=== PATIENT | female | born 1965 | race Caucasian/White ===

== ENCOUNTER 2021-11-20 16:45 | Emergency (ER) | payer SELFPAY ==
[2021-11-20 18:14] LABS: Hematocrit 37.1 % (36.0-45.0); Lymphocytes % 8.3 % (15.3-44.8); MPV 9.3 fL (7.6-11.3); RBC Red Blood Cell Count 4.69 M/uL (3.86-4.86)
[2021-11-20 18:29] LABS: Albumin 2.9 g/dL (3.4-5.0); Bilirubin Total 0.6 mg/dL (0.2-1.0); Potassium 4.7 mmol/L (3.5-5.1); Protein, Total 6.8 g/dL (6.4-8.2)
[2021-11-20 19:16] LABS: Blood Morphology Comment NOT SEEN (NOT SEEN); Platelet Estimate ADEQ; Toxic Granulation 1+
[2021-11-20 19:36] LABS: Urine Blood Negative (Negative); Urine Glucose 2+ (Negative); Urine Protein Negative (Negative)
[2021-11-20 19:54] LABS: Urine Bacteria <20 /HPF (<20); Urine RBC NONE SEEN /HPF (NONE SEEN)
--- NOTE | 2021-11-20 20:03 | RAD REPORT ---
EXAM DESCRIPTION: CTAbdomen Pelvis W Contrast - 11/20/2021 7:47 pm CLINICAL HISTORY: Epigastric pain COMPARISON: <Comparisons> TECHNIQUE: CT of the abdomen and pelvis was performed. All CT scans are performed using dose optimization technique as appropriate and may include automated exposure control or mA/KV adjustment according to patient size. FINDINGS: Lower chest: Paraesophageal varices Liver: Cirrhotic liver morphology. Biliary: Cholecystectomy Stomach: No significant focal abnormality. Duodenum: No significant focal abnormality. Pancreas: No significant abnormality. Spleen: Splenomegaly Adrenal: No suspicious lesions. Kidney/ureter: No hydronephrosis. No renal calculi. Right renal cyst Retroperitoneum: No retroperitoneal adenopathy. Vascular: Atherosclerosis. Bowel: Wall thickening at the ascending colon which may be secondary to portal colopathy. Peritoneum: Small volume of ascites. Bladder: Grossly unremarkable. Reproductive: No adnexal masses. Hysterectomy Bones: No acute fracture. Other: n/a IMPRESSION: No acute intra-abdominal or pelvic finding. Cirrhosis with evidence of portal hypertension including splenomegaly and ascites. Wall thickening at the ascending colon can be a manifestation of portal hypertension however colitis can appear similar .
--- NOTE | 2021-11-20 20:06 | RAD REPORT ---
EXAM DESCRIPTION: RAD - Chest Pa And Lat (2 Views) - 11/20/2021 7:49 pm CLINICAL HISTORY: Cough COMPARISON: Abdomen Pelvis W Contrast dated 11/20/2021 FINDINGS: Lines: None. Lungs: No evidence of edema or pneumonia. Pleural: No significant pleural effusions or pneumothorax. Cardiac: The heart size is within normal limits. Bones: No acute fractures. Other: IMPRESSION: No acute cardiopulmonary disease.
[2021-11-20] MEDS ORDERED: NA CHLORIDE 0.9% 1,000 ML ONE (20:22)
[2021-11-20] MEDS ORDERED: HYDROCODONE/CHLORPHEN 5 ML/OSYR ONE (20:22)
[2021-11-20] MEDS ORDERED: DIAZEPAM 10 MG/2 ML INJ SYRINGE ONE (20:52)
--- NOTE | 2021-11-20 22:10 | EDPHYS ---
Physician Documentation [facility] Name: Michelle Gilbert Age: 56 yrs Sex: Female : 1965 Arrival Date: 11/20/2021 Time: 16:48 Bed 17 Private MD: ED Physician Jacques Marks HPI: 11/20 17:54 This 56 yrs old Female presents to ER via Ambulatory with complaints of Abnormal Lab pm1 Results. 17:54 Associated signs and symptoms: Pertinent positives: Nausea, vomiting, and diarrhea pm1 yesterday. Cough and sore throat for 1 week. Modifying factors: The patient symptoms are alleviated by nothing, the patient symptoms are aggravated by nothing. The patient has been recently seen by a physician: the patient's primary care provider, for apparently unrelated complaints, patient was seen for a routine check. 56-year-old patient presents to the ER with complaints of abnormal lab results, elevated white count. Patient had routine labs performed last by her PCP in [place]. Patient was contacted yesterday by her PCP due to the elevated white count and instructed to report to the ER for evaluation. Patient with complaints of cough and sore throat for 1 week. Patient also has nausea vomiting and diarrhea yesterday during her drive from [place]. Historical: - Allergies: 17:10 PENICILLINS; ss 17:10 Sulfa (Sulfonamide Antibiotics); ss 17:10 Vancomycin; ss - PMHx: 17:10 Hypertensive disorder; high cholesterol; neuropathy; Diabetes mellitus; ss - PSHx: 17:10 hysterectomy; Cholecystectomy; ss - Immunization history:: Client reports receiving the 2nd dose of the Covid vaccine. - Social history:: Smoking status: Patient denies any tobacco usage or history of. ROS: 17:54 Constitutional: Negative for fever, chills, and weight loss. pm1 17:54 Cardiovascular: Negative for chest pain, palpitations, and edema. 17:54 Back: Negative for injury and pain, : Negative for injury, bleeding, discharge, and swelling, MS/Extremity: Negative for injury and deformity, Skin: Negative for injury, rash, and discoloration, Neuro: Negative for headache, weakness, numbness, tingling, and seizure. 17:54 ENT: Positive for sore throat. 17:54 Respiratory: Positive for cough, Negative for shortness of breath. 17:54 Abdomen/GI: Positive for nausea, vomiting, and diarrhea, Negative for abdominal pain. 17:54 All other systems are negative. Exam: 17:54 Constitutional: This is a well developed, well nourished patient who is awake, alert, pm1 and in no acute distress. Head/Face: Normocephalic, atraumatic. 17:54 Back: No spinal tenderness. No costovertebral tenderness. Full range of motion. Skin: Warm, dry with normal turgor. Normal color with no rashes, no lesions, and no evidence of cellulitis. MS/ Extremity: Pulses equal, no cyanosis. Neurovascular intact. Full, normal range of motion. 17:54 ENT: Exam is negative for acute changes, Mouth: no acute changes, Lips: normal, moist, Oral mucosa: normal, pink and intact, moist, Posterior pharynx: no acute changes, Airway: normal, Tonsils: are normal in appearance, swelling, is not appreciated. 17:54 Neck: Exam negative for acute changes, ROM/movement: no acute changes, Meningeal signs: are not present. 17:54 Cardiovascular: Exam negative for acute changes, Rate: normal, Rhythm: regular, Pulses: no pulse deficits are appreciated. 17:54 Respiratory: Exam negative for acute changes, respiratory distress, shortness of breath, Breath sounds: are clear throughout. 17:54 Abdomen/GI: Inspection: abdomen appears normal, Palpation: soft, in all quadrants, mild abdominal tenderness, in the left lower quadrant. 17:54 Neuro: Exam negative for acute changes, Orientation: is normal, Mentation: is normal, Motor: is normal, moves all fours. Vital Signs: 17:08 Weight 74.84 kg; Height 5 ft. 2 in. (157.48 cm); Pain 0/10; ss 17:12 Pulse 88; Resp 16; Temp 98.2(TE); Pulse Ox 100% ; ss 17:13 BP 171 / 81; ss 19:41 BP 154 / 82; Pulse 48; Resp 18; Pulse Ox 100% on R/A; kd3 22:46 BP 142 / 81; Pulse 57; Resp 17; Pulse Ox 99% on R/A; kd3 17:08 Body Mass Index 30.18 (74.84 kg, 157.48 cm) MDM: 18:48 Patient medically screened. pm1 20:53 Data reviewed: vital signs. Data interpreted: Pulse oximetry: on room air is 100 %. pm1 Interpretation: normal. 20:53 ED course: Patient complaining of anxiety and is requesting something stronger than the pm1 hydroxyzine that her doctor has prescribed her. 22:02 Counseling: I had a detailed discussion with the patient and/or guardian regarding: the pm1 historical points, exam findings, and any diagnostic results supporting the discharge/admit diagnosis, radiology results, Discussed with patient treatment options, I would like admission for her colitis due to elevated white count but the patient wants to go home due to her anxiety. I have addressed her anxiety. Patient's lactate is normal and her vital signs are within normal limits. Patient does not have sepsis. Discussed return precautions with that patient and daughter. 11/20 17:53 Order name: CBC with Diff; Complete Time: 19:17 11/20 17:53 Order name: CMP; Complete Time: 18:43 11/20 17:53 Order name: Lipase; Complete Time: 18:43 11/20 19:09 Order name: COVID-19 SARS RT PCR (Document "Date of Onset" if Symptomatic); Complete pm1 Time: 20:36 11/20 19:09 Order name: Flu; Complete Time: 20:16 pm11/20 19:09 Order name: Strep; Complete Time: 20:16 pm11/20 19:09 Order name: CT Abd/Pelvis - IV Contrast Only; Complete Time: 20:16 pm11/20 19:09 Order name: Chest Pa And Lat (2 Views) XRAY; Complete Time: 20:16 pm11/20 19:09 Order name: Urine Microscopic Only; Complete Time: 20:16 pm11/20 19:09 Order name: Lactate; Complete Time: 20:16 pm11/20 19:17 Order name: Manual Differential; Complete Time: 19:17 EDMS 11/20 19:37 Order name: Urine Dipstick-Ancillary; Complete Time: 20:16 EDIN 11/20 20:05 Order name: Throat Culture EDIN 11/20 17:53 Order name: IV Saline Lock; Complete Time: 18:03 11/20 17:53 Order name: Labs collected and sent; Complete Time: 18:03 11/20 19:09 Order name: Urine Dipstick-Ancillary (obtain specimen); Complete Time: 19:36 pm1 Administered Medications: 20:24 Drug: NS 0.9% 1000 ml Route: IV; Rate: 1000 ml; Site: left forearm; kd3 22:48 Follow up: Response: No adverse reaction; IV Status: Completed infusion kd3 20:24 Drug: Tussionex Pennkinetic ER (chlorpheniramine-hydrocodone) Suspension 5 ml Route: PO;kd3 22:48 Follow up: Response: No adverse reaction kd3 20:50 Drug: Valium (diazepam) 2 mg Route: IVP; Site: left antecubital; kd3 22:48 Follow up: Response: No adverse reaction kd3 22:30 Drug: Flagyl (metroNIDAZOLE) 500 mg Volume: 100 ml; Route: IVPB; Rate: 200 ml/hr; kd3 Infused Over: 30 mins; Site: left antecubital; 22:30 Follow up: Response: No adverse reaction; IV Status: Completed infusion kd3 22:48 Follow up: Response: No adverse reaction kd3 22:30 Drug: Cipro (ciprofloxacin) 500 mg Route: PO; kd3 22:48 Follow up: Response: No adverse reaction kd3 22:30 Drug: Bentyl (dicyclomine) 20 mg Route: IM; Site: right gluteus; kd3 22:48 Follow up: Response: No adverse reaction kd3 22:30 Drug: Valium (diazepam) 2 mg Route: PO; kd3 22:47 Follow up: Response: No adverse reaction; Anxiety decreased kd3 Disposition Summary: 11/20/21 22:09 Discharge Ordered Location: Home pm1 Problem: new pm1 Symptoms: have improved pm1 Condition: Stable pm1 Diagnosis - Colitis pm1 - Acute upper respiratory infection, unspecified pm1 Followup: pm1 - With: Emergency Department - When: As needed - Reason: Worsening of condition Followup: pm1 - With: Private Physician - When: 2 - 3 days - Reason: Recheck today's complaints, Continuance of care, Re-evaluation by your physician Discharge Instructions: - Discharge Summary Sheet pm1 - Upper Respiratory Infection, Adult pm1 - Colitis pm1 Forms: - Medication Reconciliation Form pm1 - Thank You Letter pm1 - Antibiotic Education pm1 - Prescription Opioid Use pm1 Prescriptions: - Flagyl 500 mg Oral Tablet - take 1 tablet by ORAL route every 8 hours for 10 days; 30 tablet; Refills: 0, pm1 Product Selection Permitted - Cipro 500 mg Oral Tablet - take 1 tablet by ORAL route every 12 hours for 7 days; 20 tablet; Refills: 0, pm1 Product Selection Permitted - ondansetron 4 mg Oral tablet,disintegrating - place 1 tablet by TRANSLINGUAL route every 8 hours As needed; 12 tablet; pm1 Refills: 0, Product Selection Permitted - Tramadol 50 mg Oral Tablet - take 1 tablet by ORAL route every 8 hours As needed as needed; 12 tablet; pm1 Refills: 0, Product Selection Permitted Addendum: 11/22/2021 07:14 Co-signature as Attending Physician, Jacques Marks MD. r n Signatures: Dispatcher [employer] EDIN Jacques Marks MD MD rn Smirch, Shelby, RN RN ss Lamont Vargas, DETACHER DETACHER pm1 Janice Carey RN RN kd3
--- NOTE | 2021-11-20 22:10 | ER ---
Nurse's Notes [facility] Name: Michelle Gilbert Age: 56 yrs Sex: Female : 1965 Arrival Date: 11/20/2021 Time: 16:48 Bed 17 Private MD: Diagnosis: Colitis;Acute upper respiratory infection, unspecified Presentation: 11/20 17:08 Chief complaint: Patient states: Labs drawn last week and was told to come to ER for ss high white count and abnormal renal function. Pt states they were routine labs, but she also had not been feeling well. Coronavirus screen: Client denies travel out of the [place] in the last 14 days. Ebola Screen: Patient denies exposure to infectious person. Patient denies travel to an Ebola-affected area in the 21 days before illness onset. Initial Sepsis Screen: Does the patient meet any 2 criteria? No. Patient's initial sepsis screen is negative. Does the patient have a suspected source of infection? No. Patient's initial sepsis screen is negative. Risk Assessment: Do you want to hurt yourself or someone else? Patient reports no desire to harm self or others. Onset of symptoms is unknown. 17:08 Method Of Arrival: Ambulatory ss 17:08 Acuity: CHANDU 3 ss Historical: - Allergies: 17:10 PENICILLINS; ss 17:10 Sulfa (Sulfonamide Antibiotics); ss 17:10 Vancomycin; ss - PMHx: 17:10 Hypertensive disorder; high cholesterol; neuropathy; Diabetes mellitus; ss - PSHx: 17:10 hysterectomy; Cholecystectomy; ss - Immunization history:: Client reports receiving the 2nd dose of the Covid vaccine. - Social history:: Smoking status: Patient denies any tobacco usage or history of. Screenin:45 Abuse screen: Denies threats or abuse. Denies injuries from another. Nutritional kd3 screening: No deficits noted. Tuberculosis screening: No symptoms or risk factors identified. Fall Risk IV access (20 points). Assessment: 19:41 General: Appears uncomfortable, Behavior is calm, cooperative. Neuro: Level of kd3 Consciousness is awake, alert, obeys commands, Oriented to person, place, time, situation. Respiratory: Airway is patent Trachea midline Respiratory effort is even, unlabored, Respiratory pattern is regular. 22:45 Reassessment: Patient and/or family updated on plan of care and expected duration. Pain kd3 level reassessed. Patient is alert, oriented x 3, equal unlabored respirations, skin warm/dry/pink. Pain: Denies pain. 22:47 Reassessment: pt advised to be admitted to the hospital. pt refused. pt discharged and kd3 advised to follow up. Vital Signs: 17:08 Weight 74.84 kg; Height 5 ft. 2 in. (157.48 cm); Pain 0/10; ss 17:12 Pulse 88; Resp 16; Temp 98.2(TE); Pulse Ox 100% ; ss 17:13 BP 171 / 81; ss 19:41 BP 154 / 82; Pulse 48; Resp 18; Pulse Ox 100% on R/A; kd3 22:46 BP 142 / 81; Pulse 57; Resp 17; Pulse Ox 99% on R/A; kd3 17:08 Body Mass Index 30.18 (74.84 kg, 157.48 cm) ss ED Course: 16:48 Patient arrived in ED. rg4 17:10 Triage completed. ss 17:10 Arm band placed on right wrist. ss 18:03 Inserted saline lock: 22 gauge in left antecubital area, using aseptic technique. Blood ss collected. 18:27 Lamont Vargas, MANAGER TRANSFUSION is PHCP. pm1 18:27 Jacques Marks MD is Attending Physician. pm1 19:16 Janice Carey, RN is Primary Nurse. kd3 19:49 CT Abd/Pelvis - IV Contrast Only In Process Unspecified. EDMS 19:50 Chest Pa And Lat (2 Views) XRAY In Process Unspecified. EDMS 22:45 Patient has correct armband on for positive identification. kd3 22:45 No provider procedures requiring assistance completed. IV discontinued, intact, kd3 bleeding controlled, No redness/swelling at site. Pressure dressing applied. Administered Medications: 20:24 Drug: NS 0.9% 1000 ml Route: IV; Rate: 1000 ml; Site: left forearm; kd3 22:48 Follow up: Response: No adverse reaction; IV Status: Completed infusion kd3 20:24 Drug: Tussionex Pennkinetic ER (chlorpheniramine-hydrocodone) Suspension 5 ml Route: PO;kd3 22:48 Follow up: Response: No adverse reaction kd3 20:50 Drug: Valium (diazepam) 2 mg Route: IVP; Site: left antecubital; kd3 22:48 Follow up: Response: No adverse reaction kd3 22:30 Drug: Flagyl (metroNIDAZOLE) 500 mg Volume: 100 ml; Route: IVPB; Rate: 200 ml/hr; kd3 Infused Over: 30 mins; Site: left antecubital; 22:30 Follow up: Response: No adverse reaction; IV Status: Completed infusion kd3 22:48 Follow up: Response: No adverse reaction kd3 22:30 Drug: Cipro (ciprofloxacin) 500 mg Route: PO; kd3 22:48 Follow up: Response: No adverse reaction kd3 22:30 Drug: Bentyl (dicyclomine) 20 mg Route: IM; Site: right gluteus; kd3 22:48 Follow up: Response: No adverse reaction kd3 22:30 Drug: Valium (diazepam) 2 mg Route: PO; kd3 22:47 Follow up: Response: No adverse reaction; Anxiety decreased kd3 Medication: 22:46 VIS not applicable for this client. kd3 Outcome: 22:09 Discharge ordered by . pm1 22:45 Discharged to home ambulatory. kd3 22:45 Condition: stable 22:45 Condition: stable 22:45 Discharge instructions given to patient, family, Instructed on discharge instructions, follow up and referral plans. medication usage, Demonstrated understanding of instructions, follow-up care, medications, Prescriptions given X 4. 22:48 Patient left the ED. kd3 Signatures: Dispatcher [employer] EDMS Clara Padron RN RN ss Marinas, Patrick, ANN MANAGER TRANSFUSION pm1 Chetna Alegria 4 Janice Carey RN RN kd3
[2021-11-20] MEDS ORDERED: DIAZEPAM 2 MG TABLET ONE (22:25)
[2021-11-20] MEDS ORDERED: DICYCLOMINE HCL 20 MG/2 ML AMP IM ONE (22:25)
[2021-11-20] MEDS ORDERED: CIPROFLOXACIN HCL 500 MG TAB ONE (22:25)
[2021-11-20] MEDS ORDERED: METRONIDAZOLE 500mg IVPB 500 MG/100 ML BAG IV ONE (22:26)
[2021-11-21 00:26] VITALS: TEMP 98.2
[2021-11-21 00:31] VITALS: BP 142/81; O2SAT 99
== END 2021-11-20 22:48 | disposition home or self-care (01) ==
LOC: ER 16:45
DX: K52.9 Noninfective gastroenteritis and colitis, unspecified (principal); J06.9 Acute upper respiratory infection, unspecified; E11.40 Type 2 diabetes mellitus with diabetic neuropathy, unspecified; I10 Essential (primary) hypertension; Z88.0 Allergy status to penicillin; Z88.2 Allergy status to sulfonamides; Z88.3 Allergy status to other anti-infective agents; Z20.822 Contact with and (suspected) exposure to COVID-19
CPT/HCPCS: 36415; 71046; 74177; 80053; 81003; 81015; 83605; 83690; 85025; 87070; 87081; 87804; 96361; 96372; 96374; 96375; 99284; J0500; J3360; J3490; J7030; Q9967; U0003